=== PATIENT | female | born 1950 | race Caucasian/White ===

== ENCOUNTER → 2016-11-17 | Day surgery (SDC) | payer OTHER ==
[2016-11-03 11:46] LABS: BASO % 0.4 %; BASO ABS # 0.02 K/uL (0-0.2); COMPLETE YES; EOS % 1.6 %; HEMATOCRIT 41.5 % (37-47); LYMPH % 33.3 %; LYMPH ABS # 1.64 K/uL (1.2-3.4); MEAN CORPUSCULAR HEMOGLOBIN 29.6 pg (25-34); MEAN PLATELET VOLUME 9.9 fL (7.4-10.4); MONO % 10.3 %; NEUT % 54.4 %; PLATELET COUNT 310 K/uL (130-400); RED BLOOD COUNT 4.77 M/uL (4.2-5.4); WHITE BLOOD COUNT 4.93 K/uL (4.8-10.8)
[2016-11-03 12:01] LABS: BLOOD UREA NITROGEN 15 mg/dl (7-18); BUN/CREATININE RATIO 18.8 (10-20); CALCIUM 9.1 mg/dl (8.5-10.1); CARBON DIOXIDE 26 mmol/L (21-32); CHLORIDE 106 mmol/L (98-107); CREATININE 0.78 mg/dl (0.60-1.20); GLUCOSE 91 mg/dl (70-99); POTASSIUM 4.2 mmol/L (3.5-5.1); SODIUM 142 mmol/L (136-145)
[2016-11-06 14:25] VITALS: Ht 152.4 cm; Wt 62.7 kg
[~2016-11-17] VITALS: Ht 152.4 cm; Wt 62.7 kg
[~2016-11-17] MED LIST: ATROPINE SULFATE 0.1 MG/ML 5ML SYR IV PRN; CIPROFLOXACIN / D5W 400 MG IV SCH; DEXAMETHASONE SOD INJ 4 MG/ML VIAL ONE; EpHEDrine SULFATE INJ 50 MG/ML AMP IV PRN; EpHEDrine SULFATE INJ 50 MG/ML AMP ONE; FENTANYL CITRATE INJ 50 MCG/1 ML 2 ML VIAL IV PRN; FENTANYL CITRATE INJ 50 MCG/1 ML 2 ML VIAL ONE; GLYCOPYRROLATE INJ 0.2 MG/ML VIAL ONE; LACTATED RINGER'S 1000ML 1,000 ML IV SCH; METOCLOPRAMIDE HCL INJ 5 MG/ML 2 ML VIAL ONE; MIDAZOLAM HCL 1 MG/ML 2ML VIAL ONE; NURSING VERBAL MED ORDER ONE; ONDANSETRON INJ 2 MG/ML 2 ML VIAL IV PRN; ONDANSETRON INJ 2 MG/ML 2 ML VIAL ONE; PROPOFOL IV EMULSION 10 MG/ML 20 ML VIAL IV ONE; SODIUM CHLORIDE 0.9% INJ 10 ML VIAL ONE
--- NOTE | 2016-11-17 08:08 | DIAGNOSTIC IMAGING REPORT ---
KUB CLINICAL HISTORY: Nephrolithiasis. FINDINGS: 2 AP abdominal radiographs are compared to study dated 11/03/2016. Correlation is made with abdominal CT dated 10/13/2016. There is unchanged appearance of an 8 mm calculus projecting over the proximal left ureter. This projects of the left transverse process of L3. No additional renal calculi are clearly identified. Evaluation of the renal shadows is significantly degraded by moderate constipation. There is no bowel obstruction. Numerous phleboliths are identified in the pelvis. Mild lumbosacral spondylosis is observed. IMPRESSION: 1. Unchanged appearance of an 8 mm left ureteral calculus as compared to 11/03/2016. 2. Moderate to severe constipation. Electronically signed by: Byron Lentz M.D. 11/17/2016 8:06 AM Dictated Date/Time: 11/17/2016 8:04 AM
--- NOTE | 2016-11-17 08:32 | History & Physical Bridge - SC ---
H&P Re-Evaluation Bridge Note: I have examined the patient, reviewed the History & Physical and in the interval since the performance of the History & Physical I have noted the following changes of clinical significance: No changes noted
--- NOTE | 2016-11-17 09:19 | [facility] Post Operative Brief Note ---
Immediate Operative Summary Operative Date Nov 17, 2016. Pre-Operative Diagnosis left ureteral stone Post-Operative Diagnosis same Procedure(s) Performed Left Extracorporeal Shock Wave Lithotripsy Surgeon dr lee Education Supervisor Surgeon(s) none Estimated Blood Loss 0 Findings stones appeared to fragment Specimens 0
--- NOTE | 2016-11-17 09:20 | Discharge Instructions-SurgCtr ---
Discharge Instructions Visit Reason for Visit: Stones Discharge Goals Goal(s): Decrease discomfort, Increase independence, Improve disease control Activity Recommendations Activity Limitations: as noted below (no driving on narcotics) Anesthesia . Post Anesthesia Instructions: If you have had General Anesthesia or IV Sedation: * Do not drive today. * Resume driving when surgeon permits. * Do not make important decisions or sign legal documents today. * Call surgeon for: 1. Temperature elevations greater than 101 degrees F. 2. Uncontrollable pain. 3. Excessive bleeding. 4. Persistent nausea and vomiting. 5. Medication intolerance (nausea, vomiting or rash). * For nausea and vomiting use only clear liquids such as: tea, soda, bouillon until nausea subsides, then gradually increase diet as tolerated. * If you have any concerns or questions, call your surgeon's office. If physician is unavailable and it is an emergency, call 911 or go to the nearest emergency room. . Diet Recommendations Home Diet: no limitations, resume previous diet Procedures Procedures Performed: Left Extracorporeal Shock Wave Lithotripsy Pending Studies Studies pending at discharge: no Medical Emergencies . Who to Call and When: Medical Emergencies: If at any time you feel your situation is an emergency, please call 911 immediately. . Non-Emergent Contact . . "Provider Documentation" section prepared by Frank Jones.
--- NOTE | 2016-11-17 09:54 | Anesthesia Progress Nt - [facility] ---
Anesthesia Post Op Note Date & Time Nov 17, 2016 at 09:54 Vital Signs Pain Intensity: 0 Vital Signs Past 12 Hours Date Time Temp Pulse Resp B/P Pulse Ox O2 Delivery O2 Flow Rate FiO2 11/17/16 09:31 36.2 82 20 135/83 100 Diffusion Mask 6 11/17/16 06:47 36.5 70 16 132/86 98 Room Air Notes Mental Status: alert / awake / arousable, participated in evaluation Pt Amnestic to Procedure: Yes Nausea / Vomiting: adequately controlled Pain: adequately controlled Airway Patency, RR, SpO2: stable & adequate BP & HR: stable & adequate Hydration State: stable & adequate Anesthetic Complications: no major complications apparent
[2016-11-17 11:03] VITALS: BP 145/84; PULSE 77; TEMP 36.4; O2SAT 96
--- NOTE | 2016-11-17 13:10 | OPERATIVE REPORT ---
DATE OF OPERATION: 11/17/2016 PREOPERATIVE DIAGNOSIS: Left ureteral stone. POSTOPERATIVE DIAGNOSIS: Same. PROCEDURE PERFORMED: Left ureteral ESWL. SURGEON: Dr. Jones. ANESTHESIA: General. INDICATIONS: The patient is a 66-year-old female with a 4 x 3 left ureteral stone. DESCRIPTION OF THE PROCEDURE: The patient was given preoperative antibiotics, had Venodyne stockings placed, was taken to the operating room and received 2500 shocks up to level 5. The stone appeared to fragment. At the end of the procedure, the patient was transferred to the recovery room in stable condition. I attest to the content of the Intraoperative Record and any orders documented therein. Any exceptio ns are noted below.
== END | disposition home or self-care (01) ==
LOC: X.SURG 06:28
PROVIDERS: ATTEND Urology
DX: N20.1 Calculus of ureter (principal); Z87.442 Personal history of urinary calculi; I10 Essential (primary) hypertension; M10.9 Gout, unspecified; I25.2 Old myocardial infarction; Z98.890 Other specified postprocedural states

== ENCOUNTER → 2016-11-29 | Outpatient (CLI) | payer OTHER | END | disposition home or self-care (01) | LOC: C.LABSPEC 17:26 | PROVIDERS: ATTEND Urology | DX: N20.9 Urinary calculus, unspecified (principal); N32.89 Other specified disorders of bladder ==

== ENCOUNTER → 2016-11-29 | Outpatient (CLI) | payer OTHER ==
--- NOTE | 2016-11-29 10:27 | DIAGNOSTIC IMAGING REPORT ---
KUB CLINICAL HISTORY: N20.9 Urolithiasis COMPARISON STUDY: 11/17/2016 FINDINGS: The renal shadows are partially obscured by overlying bowel gas and fecal material. There is a 2 mm calcific density projecting over the right kidney suspicious for a calculus. There is a punctate calcifications project over the lower pole the left kidney. There are clustered fragmented calcifications measuring 9 mm in aggregate at the L2-3 level of the left. These are suspicious for proximal left ureteral calculi. There are bilateral tubal ligation rings within the pelvis. There are multiple pelvic basin calcifications likely representing phleboliths. There is no pathologic bowel dilatation. IMPRESSION: 1. Suspected clustered proximal left ureteral calculi measuring 9 mm in aggregate 2. Suspected bilateral nephrolithiasis Electronically signed by: José Manuel Quesada M.D. 11/29/2016 10:25 AM Dictated Date/Time: 11/29/2016 10:23 AM
== END | disposition home or self-care (01) ==
LOC: C.RAD 10:10
PROVIDERS: ATTEND Urology
DX: N20.9 Urinary calculus, unspecified (principal)

== ENCOUNTER → 2016-11-29 | Outpatient (CLI) | payer OTHER | END | disposition home or self-care (01) | LOC: C.PATHSPEC 17:50 | PROVIDERS: ATTEND Urology | DX: N32.89 Other specified disorders of bladder (principal) ==

== ENCOUNTER → 2016-12-20 | Outpatient (CLI) | payer OTHER ==
[~2016-12-20] MED LIST changes: -ATROPINE SULFATE 0.1 MG/ML 5ML SYR IV PRN; -CIPROFLOXACIN / D5W 400 MG IV SCH; -DEXAMETHASONE SOD INJ 4 MG/ML VIAL ONE; -EpHEDrine SULFATE INJ 50 MG/ML AMP IV PRN; -EpHEDrine SULFATE INJ 50 MG/ML AMP ONE; -FENTANYL CITRATE INJ 50 MCG/1 ML 2 ML VIAL IV PRN; -FENTANYL CITRATE INJ 50 MCG/1 ML 2 ML VIAL ONE; -GLYCOPYRROLATE INJ 0.2 MG/ML VIAL ONE; -LACTATED RINGER'S 1000ML 1,000 ML IV SCH; -METOCLOPRAMIDE HCL INJ 5 MG/ML 2 ML VIAL ONE; -MIDAZOLAM HCL 1 MG/ML 2ML VIAL ONE; -NURSING VERBAL MED ORDER ONE; -ONDANSETRON INJ 2 MG/ML 2 ML VIAL IV PRN; -ONDANSETRON INJ 2 MG/ML 2 ML VIAL ONE; +OPTIRAY 300 IV PRN; -PROPOFOL IV EMULSION 10 MG/ML 20 ML VIAL IV ONE; -SODIUM CHLORIDE 0.9% INJ 10 ML VIAL ONE
--- NOTE | 2016-12-20 15:09 | DIAGNOSTIC IMAGING REPORT ---
IVP W/OR W/O TOMOGRAMS CLINICAL HISTORY: N20.9 Urolithiasis latex allergy, no iodine allergy, not diable pain. COMPARISON STUDY: 11/29/2016 FINDINGS: Nephrocalcinosis similar within limitations of overlying bowel content. Proximal left ureteral calculus similar to perhaps slightly diminished in overall volume. Study is performed from the intravenous injection of 1 cc nonionic contrast. There is prompt opacification of both liver collecting systems. The small proximal left ureteral calculus appears to be nonobstructing. Bladder opacifies appropriately. There are no filling defects. There is no significant post void residual. IMPRESSION: Small nonobstructing proximal left ureteral calculus. Several additional nonobstructing renal cortical calcification. No evidence for hydronephrosis. Electronically signed by: Eze Bragg M.D. 12/20/2016 3:08 PM Dictated Date/Time: 12/20/2016 1:54 PM
== END | disposition home or self-care (01) ==
LOC: C.RAD 12:26
PROVIDERS: ATTEND Urology
DX: N20.9 Urinary calculus, unspecified (principal)

== ENCOUNTER → 2017-04-06 | Day surgery (SDC) | payer OTHER ==
[2017-04-05 08:27] VITALS: Ht 152.4 cm; Wt 62.7 kg
[~2017-04-06] VITALS: Ht 152.4 cm; Wt 62.7 kg
[~2017-04-06] MED LIST changes: +ATROPINE SULFATE 0.1 MG/ML 5ML SYR IV PRN; +CIPROFLOXACIN 400MG / 200ML D5W ONE; +CIPROFLOXACIN 400MG / D5W IV SCH; +DEXAMETHASONE SOD INJ 4 MG/ML VIAL ONE; +EpHEDrine SULFATE INJ 50 MG/ML AMP IV PRN; +FENTANYL CITRATE INJ 50 MCG/1 ML 2 ML VIAL IV PRN; +FENTANYL CITRATE INJ 50 MCG/1 ML 2 ML VIAL ONE; +LACTATED RINGER'S 1000ML 1,000 ML IV SCH; +LIDOCAINE HCL 2% 2 ML VIAL (20MG/ML) ONE; +ONDANSETRON INJ 2 MG/ML 2 ML VIAL ONE; -OPTIRAY 300 IV PRN; +OXYCODONE/ACETAMINOPHEN 5-325 TAB PO PRN; +PROPOFOL IV EMULSION 10 MG/ML 20 ML VIAL IV ONE
--- NOTE | 2017-04-06 07:47 | History & Physical Bridge Note ---
H&P Re-Evaluation Bridge Note: I have examined the patient, reviewed the History & Physical and in the interval since the performance of the History & Physical I have noted the following changes of clinical significance: Was scheduled for uscope, but due to time needed was scheduled for ESWL for L distal stones sooner. ASHUTOSH
--- NOTE | 2017-04-06 08:31 | Discharge Instructions ---
Discharge Instructions Date of Service April 06, 2017. Admission Reason for Admission: Stones Discharge Discharge Diagnosis / Problem: L distal ureteral stone s/p ESWL Discharge Goals Goal(s): Decrease discomfort, Improve disease control, Therapeutic intervention Activity Recommendations Activity Limitations: per Instructions/Follow-up section Lifting Limitations: no more than 25 pounds, gradually increase as tolerated Exercise/Sports Limitations: rest today, gradually increase as tolerated May Resume Sexual Activity: when tolerated Shower/Bathe: no limitations Driving or Machine Use: resume 1 day after discharge . Instructions / Follow-Up Instructions / Follow-Up Strain urine as instructed KUB Xray before follow-up visit No new medications provided today, has prior Rx for pain meds Discharge Diet Recommended Diet: Regular Diet (good fluid intake) Procedures Procedures Performed: L ureteral ESWL Pending Studies Studies pending at discharge: no Medical Emergencies . Who to Call and When: Medical Emergencies: If at any time you feel your situation is an emergency, please call 911 immediately. . Non-Emergent Contact Non-Emergency issues call your: Urologist Call Non-Emergent contact if: you have a fever, temperature is above 101, your pain is not controlled, your pain is worsening, your pain is unusual for you, your pain is concerning you, you have any medication questions . . "Provider Documentation" section prepared by Layton Pérez. . VTE Core Measure Inpt VTE Proph given/why not?: SCD's
--- NOTE | 2017-04-06 08:51 | DIAGNOSTIC IMAGING REPORT ---
KUB HISTORY: N20.9 Urolithiasiss COMPARISON: KUB outside hospital 03/28/2017. FINDINGS: The bowel gas pattern is unremarkable. There are no dilated loops of small bowel to suggest an obstruction. A few punctate right renal calculi. There appears to be a column of fragment of stones within the distal left ureter near the ureterovesical junction. This has progressed. No left renal calculi identified likely due to the overlapping bowel gas. Calcifications in the deep pelvis likely represent phleboliths. No pneumoperitoneum or pneumatosis. IMPRESSION: 1. A column of fragmented stones within the left ureter near the ureterovesical junction. This has progressed. 2. Right-sided nephrolithiasis. Electronically signed by: Jermaine Banerjee M.D. 04/06/2017 8:50 AM Dictated Date/Time: 04/06/2017 8:47 AM
--- NOTE | 2017-04-06 09:14 | OPERATIVE REPORT ---
DATE OF OPERATION: 04/06/2017 PREOPERATIVE DIAGNOSIS: Left distal ureteral stone. POSTOPERATIVE DIAGNOSIS: Same. PROCEDURE: Left distal ureteral extracorporeal shockwave lithotripsy. SURGEON: Dr. Layton Pérez. SHUTTLE TRUCK DRIVER: None. ANESTHESIA: General anesthesia with laryngeal mask. COMPLICATIONS: None. FINDINGS: Good fragmentation of small stones in the left ureter. BRIEF HISTORY: Ms. Arriola is a pleasant 66-year-old female who we have seen previously for a history of stone disease, who underwent shockwave lithotripsy earlier this year. She has passed some fragments of stone and has some intermittent pain. On recent KUB, she has numerous phleboliths but pelvic calcifications consistent with a distal ureteral stone, not present on previous clinical law professor images are also noted. Interestingly, her IVP previously showed no hydronephrosis or obstruction at that level. She has been offered ureteroscopy to manage her stones, but due to scheduling issues, it will take some time for this to be available. She is proceeding with lithotripsy as the stone was visible for more prompt management. Please see H\T\P for further details. Intravenous ciprofloxacin is used for antibiotic coverage and SCDs used for DVT prophylaxis. DETAILS OF PROCEDURE: The patient was brought to the litho suite. She was correctly identified and the stone was visualized on her most recent x-rays. After the correct time out was performed the patient was positioned over the therapy head. An adequate level of anesthesia was administered. The extracorporeal shockwave lithotripsy treatment was then commenced. Please see the [place] [facility] sheet for complete treatment summary. After completion of the procedure the patient was taken to the recovery room in stable condition. I attest to the content of the Intraoperative Record and any orders documented therein. Any exceptions are noted below. MTDD
[2017-04-06 09:15] VITALS: TEMP 36.8
--- NOTE | 2017-04-06 09:19 | Anesthesia Progress Nt - [facility] ---
Anesthesia Post Op Note Date & Time April 06, 2017 at 09:20 Vital Signs Pain Intensity: 0 Vital Signs Past 12 Hours Date Time Temp Pulse Resp B/P Pulse Ox O2 Delivery O2 Flow Rate FiO2 04/06/17 09:06 36.4 144/76 04/06/17 09:05 56 17 94 04/06/17 09:05 57 17 04/06/17 09:01 135/82 04/06/17 09:00 56 17 04/06/17 09:00 56 17 97 04/06/17 08:56 146/77 04/06/17 08:55 56 17 100 04/06/17 08:55 55 17 04/06/17 08:51 141/75 04/06/17 08:50 55 15 100 04/06/17 08:50 55 15 04/06/17 08:46 138/81 04/06/17 08:45 54 14 04/06/17 08:45 54 14 100 04/06/17 08:42 142/80 04/06/17 08:41 36.8 56 16 142/80 100 Mask 6 04/06/17 07:11 36.6 59 16 144/81 100 Room Air Notes Mental Status: alert / awake / arousable, participated in evaluation Pt Amnestic to Procedure: Yes Nausea / Vomiting: adequately controlled Pain: adequately controlled Airway Patency, RR, SpO2: stable & adequate BP & HR: stable & adequate Hydration State: stable & adequate Anesthetic Complications: no major complications apparent
--- NOTE | 2017-04-06 09:26 | [facility] Post Operative Brief Note ---
Immediate Operative Summary Operative Date April 06, 2017. Pre-Operative Diagnosis Left Distal Ureteral Calculi Post-Operative Diagnosis Same Procedure(s) Performed L ureteral ESWL Surgeon Dr. Vignesh Pérez Bench Mechanic Surgeon(s) None Estimated Blood Loss 0 mL Findings Good stone fragmentation Specimens None Drains NA Anesthesia [facility] Complication(s) None Disposition Recovery Room / PACU
[2017-04-06 09:40] VITALS: BP 138/60; PULSE 58; O2SAT 97
== END | disposition home or self-care (01) ==
LOC: X.SURG 06:22
PROVIDERS: ATTEND Urology
DX: N20.9 Urinary calculus, unspecified (principal); Z87.442 Personal history of urinary calculi; Z90.89 Acquired absence of other organs; Z83.3 Family history of diabetes mellitus

== ENCOUNTER → 2017-04-24 | Outpatient (CLI) | payer OTHER | END | disposition home or self-care (01) | LOC: C.LABSPEC 13:57 | PROVIDERS: ATTEND Urology | DX: N20.9 Urinary calculus, unspecified (principal) ==